=== PATIENT | male | born 1960 | race Caucasian/White ===

== ENCOUNTER 2017-02-10 08:38 | Day surgery (SDC) | payer OTHER ==
[~2017-02-10 08:38] MED LIST: LACTATED RINGERS 1,000 ML IV.SOLN IV ONE; LIDOCAINE HCL/PF 2% 100 MG/5 ML VIAL IJ ONE; PROPOFOL 500 MG/50 ML VIAL IV ONE; SALINE FLUSH 10 ML DISP.SYRIN IVF ONE
--- NOTE | 2017-02-10 13:52 | GI Report ---
REFERRING PHYSICIAN: MAKAYLA Celis INFORMATION SYSTEMS SUPERVISOR: Juan Camp MD PROCEDURE MEDICATION: Propofol as per anesthesia. INDICATIONS: This 56-year-old man is referred for a screening colonoscopy. This is his first colonoscopy. He denies changes in bowel habits. He occasionally has blood in his stool but he attributes that to a hemorrhoid. No family history of colorectal cancer that he is aware of. PROCEDURE PERFORMED: Colonoscopy. PROCEDURE: An Olympus video colonoscope was advanced into the rectum. He does have an internal hemorrhoid. The colonoscope was advanced all the way to the cecum. The appendiceal orifice and terminal ileum were normal. On slow withdrawal, the cecum, ascending colon, and transverse colon with no obvious intraluminal lesions noted. The descending colon and sigmoid, again, no obvious intraluminal lesions were noted. Retroflexion of the rectum shows a hemorrhoid. Patient tolerated the procedure well. FINDINGS: 1. Normal colon mucosa to the cecum. 2. Internal hemorrhoid. RECOMMENDATIONS: 1. Increase fiber in the diet or adding Metamucil or Benefiber. 2. Consider re-looking at his colon in 10 years, sooner if clinically indicated. cc: MAKAYLA Celis [facility]
== END 2017-02-10 08:40 ==
LOC: OPSURG 08:38
PROVIDERS: ATTEND Internal Medicine Gastroenterology
DX: Z12.11 Encounter for screening for malignant neoplasm of colon (principal); K64.8 Other hemorrhoids
CPT/HCPCS: J2001; J2704; J7120; G0121; S1016